=== PATIENT | female | born 1980 | race Caucasian/White ===

== ENCOUNTER 2023-05-24 12:13 | Emergency (ER) | payer OTHER ==
[~2023-05-24] VITALS: Ht 165.1 cm; Wt 81.8 kg
[2023-05-24 12:21] VITALS: BP 142/100; TEMP 98.5
[2023-05-24] MEDS ORDERED: PEN-VEE K500 MG PO (13:44)
[2023-05-24 13:54] VITALS: PULSE 87
[2023-05-24] MEDS ORDERED: CLEOCIN HCL300 MG PO (14:32)
== END 2023-05-24 13:54 | disposition home or self-care (01) ==
LOC: COL.ER 12:13
DX: K04.7 Periapical abscess without sinus (principal)